=== PATIENT | male | born 1955 | race Asian ===

== ENCOUNTER 2022-09-23 10:12 | Emergency (ER) | payer OTHER ==
[~2022-09-23] VITALS: Ht 172.7 cm; Wt 68.6 kg
[2022-09-23] MEDS ORDERED: DexAMETHasone SOD PHOS 10MG/1ML VIAL INJ IM ONE (12:00)
[2022-09-23] MEDS ORDERED: FAMOTIDINE 20 MG TAB PO ONE (12:00)
[2022-09-23 12:14] VITALS: BP 134/76; PULSE 80; RESP 18; TEMP 97.7; O2SAT 98
[2022-09-23] MEDS ORDERED: FAMO20TA10 PO (13:07)
[2022-09-23] MEDS ORDERED: METH4PAK PO ×2 (13:07)
== END 2022-09-23 13:17 | disposition home or self-care (01) ==
LOC: ER 10:12
DX: L23.9 Allergic contact dermatitis, unspecified cause (principal)
CPT/HCPCS: 96372; 99283; J1100